=== PATIENT | female | born 1950 | race Caucasian/White ===

== ENCOUNTER 2019-06-14 07:54 | Day surgery (SDC) | payer OTHER ==
[2019-06-14 08:28] VITALS: BMI 40.4
[2019-06-14] MEDS ORDERED: ONDANSETRON 4 MG/2 ML VIAL ONE (09:11)
[2019-06-14] MEDS ORDERED: LIDOCAINE HCL/PF 2% SDV 5ML VIAL ONE (09:11)
[2019-06-14] MEDS ORDERED: SODIUM CHLORIDE 0.9% P/F 10 ML VIAL IJ ONE (09:11)
[2019-06-14] MEDS ORDERED: DEXAMETHASONE SOD PHOSPHATE 4 MG/1 ML VIAL ONE (09:11)
[2019-06-14] MEDS ORDERED: ceFAZolin SODIUM 1 GM VIAL ONE (09:11)
[2019-06-14] MEDS ORDERED: MIDAZOLAM HCL 2 MG/2 ML SINGLE DOSE VIAL ONE ×2 (09:16→09:44)
[2019-06-14] MEDS ORDERED: BUPIVACAINE HCL/PF 0.5% (5MG/ML) 10 ML VIAL ONE (09:23)
[2019-06-14] MEDS ORDERED: MORPHINE SULFATE 10 MG/1 ML *VIAL ONE (09:24)
[2019-06-14] MEDS ORDERED: oxyCODONE HCL 5 MG TABLET PO PRN (10:08)
[2019-06-14] MEDS ORDERED: ONDANSETRON 4 MG/2 ML VIAL IVPUSH PRN (10:08)
[2019-06-14] MEDS ORDERED: LACTATED RINGERS SOLUTION 1,000 ML IV SCH (10:15)
[2019-06-14] MEDS ORDERED: BUPIVACAINE HCL/PF 0.5% (5MG/ML) 10 ML VIAL IJ ONE (10:20)
--- NOTE | 2019-06-14 10:55 | OP ---
DATE OF OPERATION: 06/14/2019 PREOPERATIVE DIAGNOSIS: Torn medial meniscus, left knee. POSTOPERATIVE DIAGNOSES: 1. Osteochondritis dissecans lesion, medial femoral condyle. 2. Tearing of the medial and lateral meniscus. 3. 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 4. Extensive joint debris. 5. Hypertrophic synovium, which was extensive. PROCEDURES PERFORMED: 1. Osteochondritis dissecans lesion microdrilling for stem cell recruitment. 2. Partial medial and lateral meniscectomy. 3. Chondroplasty with chondral shaving. 4. Extensive joint debridement. 5. Extensive synovectomy. SURGEON: Gifty Shaver MD HORSE RACING ANALYST: DAVID Bowden ANESTHESIA: General anesthesia performed by Elen Shanks MD DESCRIPTION OF PROCEDURE: The procedure consisted of the patient being brought in the operating room and gently transferred from the stretcher to the OR table with all bony prominences well padded. The left leg was prepared and draped in a sterile fashion. The patient was given intravenous antibiotics and copious irrigation throughout the procedure to minimize risk for infection. A complete risk, benefit, alternative discussion was conducted with the patient, which was inclusive of, but not limited to, infection, bleeding, , paralysis, increased pain, need for repeat surgery. Patient asked questions, understood the procedure, and desired to proceed with surgical treatment. Following sterile preparation and draping of the left leg, an appropriate time-out was conducted, which was inclusive of, but not limited to, type of surgery, site of surgery, surgeon, and anesthesiologist. Following the sterile preparation and draping of the left leg, the leg was exsanguinated using a rubber Esmarch bandage and the tourniquet inflated to 350 mmHg. Suprapatellar medial and lateral joint line portals were used to induce the arthroscope and arthroscopic instruments. The knee was examined. There was noted to be hypertrophic synovium in the suprapatellar pouch, and extensive partial synovectomy was performed. Medial and lateral gutters were without plica or loose body. Medial meniscus was found to have a tear of the posterior horn, and this was resected using shaver and radiofrequency wand. There was noted to be a 1-cm diameter osteochondritis dissecans lesion on the medial femoral condyle, and this was debrided, and microdrilling was performed using a 0.62-mm drill to create a perforation pattern to allow stem cell recruitment to fill the defect. Intercondylar region was noted to have joint debris, and extensive joint debridement was performed. Lateral meniscus was found to have a tear of the posterior horn, and lateral meniscus was resected using biters, kaley, and radiofrequency wand. There was noted to be eburnated bone on the lateral femoral condyle and the tibial plateau. The knee joint was then copiously irrigated with sterile saline irrigant. The undersurface of the patella had damage consistent with chondromalacia, and this was smoothed using shaver and radiofrequency wand. The knee was then again copiously irrigated with sterile saline irrigant. The wounds were closed with 4-0 undyed Vicryl followed by Steri-Strips, Xeroform, 4 x 4's, combine, sterile Webril, QIAN bandage, and a knee immobilizer. Tourniquet was deflated after approximately 25 minutes of tourniquet time. There were no intraoperative complications. Norberto De La Fuente was critical for assisting during surgery, holding the arthroscope while I use the arthroscopic shaver and radio frequency wand. He provided critical support and safety in surgical treatment. GIFTY SHAVER M.D. [id number] MTDD
[2019-06-14 15:31] VITALS: BP 106/66; PULSE 70; TEMP 98
== END 2019-06-14 14:10 | disposition home or self-care (01) ==
LOC: FASU 07:54
PROVIDERS: ATTEND Orthopaedic Surgery
PROC: 0SBD4ZZ Excision of Left Knee Joint, Percutaneous Endoscopic Approach (ICD-10-PCS; 2019-06-14)
PROC: 0SQD4ZZ Repair Left Knee Joint, Percutaneous Endoscopic Approach (ICD-10-PCS; 2019-06-14)
PROC: 0SQD4ZZ Repair Left Knee Joint, Percutaneous Endoscopic Approach (ICD-10-PCS; 2019-06-14)
PROC: 0SBD4ZZ Excision of Left Knee Joint, Percutaneous Endoscopic Approach (ICD-10-PCS; principal; 2019-06-14 09:30)
DX: S83.242A Other tear of medial meniscus, current injury, left knee, initial encounter (principal); S83.282A Other tear of lateral meniscus, current injury, left knee, initial encounter; M93.262 Osteochondritis dissecans, left knee; M22.42 Chondromalacia patellae, left knee; M67.262 Synovial hypertrophy, not elsewhere classified, left lower leg; M25.862 Other specified joint disorders, left knee; X58.XXXA Exposure to other specified factors, initial encounter; Y93.9 Activity, unspecified; Y92.9 Unspecified place or not applicable
CPT/HCPCS: 29879; 29880; G0289; 94760